=== PATIENT | male | born 1965 | race Hispanic/Latino ===

== ENCOUNTER 2018-03-14 20:57 | Emergency (ER) | payer BC ==
[2018-03-14 21:06] VITALS: TEMP 98.6; O2SAT 99; BMI 33.2
--- NOTE | 2018-03-14 21:19 | ED PDOC ---
Arrival/HPI - General Chief Complaint: Upper Extremity Problem/Injury Historian: Patient - History of Present Illness Narrative History of Present Illness (Text): 03/14/18 21:12 52 y/o male, pmh including hemachromotosis, nkda, c/o lt. humeral region swel ling and ecchymosis x 2 days. Pt. stated that he was lifting weight at the gym about 2 days ago, heard "pop" and immediately he started to have pain, following day noted to have black and bruise, no numbness or tingling, no weakness on the lt. upper extremity, concerning for the DVT so he is here at the ER department, no chest pain or shortness of breath, no other medical or psychological complai nts. Past Medical History - Provider Review Nursing Documentation Reviewed: Yes - Infectious Disease Hx of Infectious Diseases: None Family/Social History - Physician Review Nursing Documentation Reviewed: Yes Family/Social History: Unknown Family HX Allergies/Home Meds Allergies/Adverse Reactions: Allergies No Known Allergies Allergy (Verified 03/14/18 21:19) Review of Systems - Review of Systems Constitutional: absent: Fatigue, Fevers Eyes: absent: Vision Changes ENT: absent: Hearing Changes Respiratory: absent: SOB, Cough Cardiovascular: absent: Chest Pain Gastrointestinal: absent: Abdominal Pain, Nausea, Vomiting Musculoskeletal: Myalgias. absent: Arthralgias, Back Pain Skin: Other (+bruising). absent: Rash, Pruritis, Skin Lesions, Laceration, Abscess, Ulcer, Cellulitis Neurological: absent: Headache, Dizziness Physical Exam Vital Signs Reviewed: Yes Vital Signs Temp Pulse Resp BP Pulse Ox 03/14/18 21:03 98.6 F 72 18 163/92 H 99 Temperature: Afebrile Blood Pressure: Hypertensive Pulse: Regular Respiratory Rate: Normal Appearance: Positive for: Well-Appearing, Non-Toxic, Comfortable Pain Distress: Mild Mental Status: Positive for: Alert and Oriented X 3 - Systems Exam Head: Present: Atraumatic, Normocephalic Pupils: Present: PERRL Extroacular Muscles: Present: EOMI Conjunctiva: Present: Normal Mouth: Present: Moist Mucous Membranes Neck: Present: Normal Range of Motion Respiratory/Chest: Present: Clear to Auscultation, Good Air Exchange. No: Respiratory Distress, Accessory Muscle Use Cardiovascular: Present: Regular Rate and Rhythm, Normal S1, S2. No: Murmurs Abdomen: No: Tenderness, Distention, Peritoneal Signs Back: Present: Normal Inspection Upper Extremity: Present: Normal Inspection, Neurovascularly Intact, Other (LUE: +brusing noted on medial humerus and medial aspect of the elbow with swelling, no atropy or hypertrophy except pain on the lt. elbow extension, no cellulitis or ulcers, FROM without limitation, sensation intact, motor 5/5, no scaphoid/wrist/forearm/hand/finger/tenderness, neurovascular intact, capillary refill< 2 seconds, +radial pulse. ). No: Cyanosis, Edema Lower Extremity: Present: Normal Inspection, NORMAL PULSES, Normal ROM, Neurovascularly Intact, Capillary Refill < 2 s. No: Edema, Tenderness, Swelling, Deformity Neurological: Present: GCS=15, CN II-XII Intact, Speech Normal, Motor Func Grossly Intact, Gait Normal, Memory Normal Skin: Present: Warm, Dry, Normal Color. No: Rashes Psychiatric: Present: Alert, Oriented x 3, Normal Insight, Normal Concentration Medical Decision Making ED Course and Treatment: 03/14/18 21:23 -labs -xray -sonogram -IVF -observe and reassess 03/14/18 23:00 -LUE Venuous doppler: as per preliminary report, no acute DVT -Lt. elbow xray ER wet read: no fracture or dislocation. -Lt. shoulder xray ER wet read: no fracture or dislocation. -Labs show no acute findings except wbc 11.7 (likely stress induced) -CPK is 2966, IVF ordered -I discussed all labs/radiology results with the patient, advised admission for IVF/repeat lab work and additional radiology studies including orthopedic consults, he refused, risks and benefits explained, he still request to be discharged home, stated that he would sign himself out. -AMA AMA ER The patient refuses to stay in the Emergency Room (ER) to continue the care and wishes to leave the emergency department against my medical advice. Patient was told that staying in the ER is necessary and a full explanation of the reasons why was given, and understood by the patient with alert and oriented x4. The risk of leaving were explained in laymans term and including but not limited rhabdomylosis, renal failure, organ failures, muscle/tendon/ligament torn/ruptures, pain, worsening of condition, permanent disability and from an undiagnosed or untreated condition. The patient accepts these risks, and is in my judgment is competent and capable of understanding the clinical situation and explanation of the risk of leaving. The patient is able to verbally repeated me back the above explained risks and benefits back to me, and verbally expressed understanding. Patient was given the opportunity to ask questions and change mind. The patient was instructed regarding the best care for the present symptoms, and to follow up as soon as possible with the primary care doctor including specialist or return to the emergency department at any time for continuing care. -You sign out your self out. Take tylenol for pain as needed. You are discharged with tylenol and sling but this is not the optimal care. You were advised to be admitted for IVF/repeat serial lab and radiology exams/specialist consults but you declined. Your CPK is 2966, please stay hydrated and stopped all gym activities and see your own pmd to repeat lab works in 24 hours, return to the ER for any new or worsening signs or symptoms. - RAD Interpretation Radiology Orders: -LUE Venuous doppler: PROCEDURE: Left upper extremity venous ultrasound HISTORY: Arm pain and swelling. Evaluate for deep venous thrombosis. The exam is somewhat limited by edema PHYSICIAN(S): Melvin Lopez MD. FINDINGS: The visualized leftinternal jugular vein is sonographically normal and compressible. No evidence of obstruction or thrombus is seen. The visualized segments of the left subclavian vein are patent with normal waveforms. No sonographic evidence of obstruction or thrombosis is seen. The visualized deep venous system of the proximal leftupper extremity is sonographically normal and compressible. IMPRESSION: 1. No sonographic evidence for deep venous thrombosis in the visualized segments of the left upper extremity. -Lt. elbow xray Date of service: 03/14/2018 PROCEDURE: Radiographs of the left elbow. HISTORY: lt. UE pain COMPARISON: No prior. FINDINGS: BONES: Normal. No fracture. JOINTS: Normal. No osteoarthritis. SOFT TISSUES: Normal. JOINT EFFUSION: None. OTHER FINDINGS: None IMPRESSION: Unremarkable radiographs of the left elbow. -Lt. shoulder xray Date of service: 03/14/2018 PROCEDURE: Radiographs of the Left Shoulder HISTORY: lt. UE pain COMPARISON: No prior. FINDINGS: BONES: Normal. No fracture. JOINTS: Normal. Glenohumeral and acromioclavicular joints preserved. No osteoarthritis. SOFT TISSUES: Normal. OTHER FINDINGS: None. IMPRESSION: Normal radiographs of the left shoulder. Commercial Estimator: Radiologist - PA / TIRE TRIMMER HAND / Resident Statement MD/DO has reviewed & agrees with the documentation as recorded. Disposition/Present on Arrival - Present on Arrival Any Indicators Present on Arrival: No History of DVT/PE: No History of Uncontrolled Diabetes: No Urinary Catheter: No History of Decub. Ulcer: No History Surgical Site Infection Following: None - Disposition Have Diagnosis and Disposition been Completed?: Yes Diagnosis: Arm injury, Arm pain, Rhabdomyolysis Disposition: AGAINST MEDICAL ADVICE Disposition Time: 23:06 Condition: STABLE Additional Instructions: -You sign out your self out. Take tylenol for pain as needed. You are discharged with tylenol and sling but this is not the optimal care. You were advised to be admitted for IVF/repeat serial lab and radiology exams/specialist consults but you declined. Your CPK is 2966, please stay hydrated and stopped all gym activities and see your own pmd to repeat lab works in 24 hours, return to the ER for any new or worsening signs or symptoms. Please don't take motrin/advils/naproxen/nsaid for this pain as this may stress out the kidney. Prescriptions: Acetaminophen [Tylenol] 2 cap PO QID PRN #30 capsule PRN Reason: Other Referrals: Lydia Berger MD [Primary Care Provider] - Follow up with primary Trace Negrete III, MD [Medical Doctor] - Follow up with primary Forms: [employer] (Ukrainian), WORK NOTE
[2018-03-14] MEDS ORDERED: Sodium Chloride 0.9% 1,000 ML IV STA ×3 (21:21→23:02)
[2018-03-14 21:40] LABS: BASO # 0.04 K/mm3 (0.0-2.0); BASO % 0.3 % (0.0-3.0); EOS # 0.1 (0.0-0.7); EOS % 1.2 % (1.5-5.0); GRAN # 6.74 (1.4-6.5); GRAN % 57.8 % (50.0-68.0); HEMOGLOBIN 15.1 g/dL (14.0-18.0); LYMPH # 3.2 (1.2-3.4); LYMPH % 27.7 % (22.0-35.0); MEAN CELL VOLUME 95.3 fl (80.0-105.0); MEAN CORPUSCULAR HEMOGLOBIN 32.5 pg (25.0-35.0); MEAN CORPUSCULAR HGB CONC 34.1 g/dl (31.0-37.0); MEAN PLATELET VOLUME 9.8 fl (7.0-11.0); MONO # 1.5 (0.1-0.6); RBC 4.65 10^6/uL (3.5-6.1); RED CELL DISTRIBUTION WIDTH 12.5 % (11.5-14.5); WHITE BLOOD COUNT 11.7 10^3/uL (4.5-11.0)
[2018-03-14 21:47] LABS: INR 1.08; PARTIAL THROMBOPLASTIN TIME 30.5 Seconds (25.1-36.5); PROTHROMBIN TIME 12.3 SECONDS (9.4-12.5)
[2018-03-14 21:51] LABS: ALB/GLOB RATIO 1.4 (1.1-1.8); ALBUMIN 4.1 g/dL (3.0-4.8); ALT/SGPT 59 U/L (7-56); AST/SGOT 88 U/L (17-59); BLOOD UREA NITROGEN 13 mg/dL (7-21); CALCIUM 8.7 mg/dL (8.4-10.5); GFR NON-AFRICAN AMERICAN > 60
[2018-03-14 22:52] LABS: CK MB% 0.2 % (2.5-3.0); CK-MB 5.3 ng/mL (0.0-3.6)
[2018-03-14 23:40] VITALS: BP 157/90; PULSE 70; RESP 17
--- NOTE | 2018-03-15 09:48 | RAD ---
Date of service: 03/14/2018 PROCEDURE: Radiographs of the left elbow. HISTORY: lt. UE pain COMPARISON: No prior. FINDINGS: BONES: Normal. No fracture. JOINTS: Normal. No osteoarthritis. SOFT TISSUES: Normal. JOINT EFFUSION: None. OTHER FINDINGS: None IMPRESSION: Unremarkable radiographs of the left elbow.
--- NOTE | 2018-03-15 09:55 | RAD ---
Date of service: 03/14/2018 PROCEDURE: Radiographs of the Left Shoulder HISTORY: lt. UE pain COMPARISON: No prior. FINDINGS: BONES: Normal. No fracture. JOINTS: Normal. Glenohumeral and acromioclavicular joints preserved. No osteoarthritis. SOFT TISSUES: Normal. OTHER FINDINGS: None. IMPRESSION: Normal radiographs of the left shoulder.
--- NOTE | 2018-03-15 12:46 | US ---
PROCEDURE: Left upper extremity venous ultrasound HISTORY: Arm pain and swelling. Evaluate for deep venous thrombosis. The exam is somewhat limited by edema PHYSICIAN(S): Melvin Lopez MD. FINDINGS: The visualized leftinternal jugular vein is sonographically normal and compressible. No evidence of obstruction or thrombus is seen. The visualized segments of the left subclavian vein are patent with normal waveforms. No sonographic evidence of obstruction or thrombosis is seen. The visualized deep venous system of the proximal leftupper extremity is sonographically normal and compressible. IMPRESSION: 1. No sonographic evidence for deep venous thrombosis in the visualized segments of the left upper extremity.
== END 2018-03-14 23:22 | disposition left against medical advice (07) ==
LOC: ED 20:57
DX: S49.92XA Unspecified injury of left shoulder and upper arm, initial encounter (principal); X50.0XXA Overexertion from strenuous movement or load, initial encounter; Y93.B9 Activity, other involving muscle strengthening exercises; Y92.39 Other specified sports and athletic area as the place of occurrence of the external cause; M79.602 Pain in left arm; M62.82 Rhabdomyolysis
CPT/HCPCS: 29240; 73030; 73080; 80053; 82550; 82553; 85025; 85610; 85730; 93971; 96360; 99285; J7030